=== PATIENT | male | born 1960 | race American Indian/Alaskan Native ===

== ENCOUNTER 2019-06-13 07:21 | Outpatient (CLI) | payer OTHER ==
--- NOTE | 2019-06-13 10:59 | Nuclear Medicine Report ---
NUCLEAR MEDICINE BONE SCAN, WHOLE BODY INDICATION: C61 MALIGNANT NEOPLASM OF PROSTATE. TECHNIQUE: 25.3 mCi of Tc-99m MDP were injected IV. Whole body images were obtained. COMPARISON: CT abdomen pelvis without contrast performed the same day. FINDINGS: Skeletal Structures: Fairly symmetric, likely degenerative uptake is present involving the shoulders , sternoclavicular joints, L5-S1 facet joints and right knee. Skeletal Lesions: None. Soft Tissues: Normal. Kidneys: Normal, symmetric activity. Additional Findings: Mild contamination in the perineum is noted.. IMPRESSION: Degenerative findings as described. No evidence for osseous metastasis.. Signer Name: Aayush Roberson Jr, MD Signed: 06/13/2019 10:55 AM Workstation Name: [id number]
--- NOTE | 2019-06-14 00:41 | Cat Scan Report ---
CT ABDOMEN AND PELVIS WITHOUT CONTRAST INDICATION / CLINICAL INFORMATION: C61 MALIGNANT NEOPLASM OF PROSTATE. TECHNIQUE: Axial CT images were obtained through the abdomen and pelvis without IV contrast. All CT scans at [facility] location are performed using CT dose reduction for ALARA by means of automated exposure control. COMPARISON: None available. FINDINGS: LOWER CHEST: No significant abnormality. Cardiac enlargement is present. Chronic pulmonary changes pr esent both bases LIVER: No significant abnormality. GALLBLADDER: No significant abnormality. BILE DUCTS: No significant abnormality. PANCREAS: No significant abnormality. SPLEEN: No significant abnormality. ADRENALS: No significant abnormality. RIGHT KIDNEY and URETER: Several right renal cyst present largest measuring 2.2 cm in diameter LEFT KIDNEY and URETER: Left renal cyst present measuring 3 cm in diameter STOMACH and SMALL BOWEL: No significant abnormality. COLON: Diverticulosis sigmoid colon. APPENDIX: No significant abnormality. PERITONEUM: No free fluid. No free air. No fluid collection. LYMPH NODES: No significant adenopathy. AORTA and ARTERIES: No significant abnormality. IVC and VEINS: No significant abnormality. URINARY BLADDER: No significant abnormality. REPRODUCTIVE ORGANS: No significant abnormality. Several calcifications identified within the prostat e gland ADDITIONAL FINDINGS: None. SKELETAL SYSTEM: Degenerative changes thoracic spine-lumbar spine IMPRESSION: 1. No definite evidence of metastatic prostate carcinoma (if clinical concerns persist recommend repe at examination with intravenous contrast) 2. Bilateral renal cyst 3. Diverticulosis sigmoid colon 4. Cardiac enlargement. Signer Name: Kyree Ricketts MD Signed: 06/14/2019 12:37 AM Workstation Name: [id number]
== END 2019-06-13 07:22 | disposition home or self-care (01) ==
LOC: NM 07:21
PROVIDERS: ATTEND Urology
DX: K57.30 Diverticulosis of large intestine without perforation or abscess without bleeding (principal); C61 Malignant neoplasm of prostate; M47.814 Spondylosis without myelopathy or radiculopathy, thoracic region; M47.816 Spondylosis without myelopathy or radiculopathy, lumbar region
CPT/HCPCS: 74176; 78306; A9503